=== PATIENT | male | born 1970 | race Caucasian/White ===

== ENCOUNTER 2018-02-05 21:03 | Emergency (ER) | payer BC ==
[~2018-02-05] VITALS: Ht 175.3 cm; Wt 83.9 kg
[2018-02-05] MEDS ORDERED: NKM (21:14)
[2018-02-05 21:36] VITALS: BP 122/87
--- NOTE | 2018-02-05 21:44 | Emergency Room Report ---
History of Present Illness General Chief Complaint: Laceration Source: Patient Present Illness HPI Patient is a 47-year-old male who presented after increased right ear pain. Patient reports having injury just prior to arrival. He reports having prior [place] injury which he had some residual ear deformity. The patient denied loss of consciousness. He reports having mild to moderate pain. Patient reports up to date tetanus. He denies nausea. Allergies: Coded Allergies: No Known Allergies (Unverified , 02/05/18) Patient History Past Medical History: see triage record Reviewed Nursing Documentation: PMH: Agreed; PSxH: Agreed Nursing Documentation-PMH Past Medical History: No Stated History Review of Systems All Other Systems: negative except mentioned in HPI Physical Exam Vital Signs Date Time Temp Pulse Resp B/P (MAP) Pulse Ox O2 Delivery O2 Flow Rate FiO2 02/05/18 21:09 98.1 75 16 126/87 95 Room Air 98.1 General Appearance: well appearing, no apparent distress, alert, GCS 15, non- toxic Head: normocephalic, atraumatic ENT: hearing grossly normal, normal voice, other - complex right ear laceration to medial cartilage Neck: full range of motion, supple Respiratory: no respiratory distress, speaking full sentences Musculoskeletal: no calf tenderness Neurologic: normal gait Psychiatric: mood/affect normal Skin: no rash, other - laceration to right ear near tragus Procedures Laceration/Wound Repair Laceration/Wound Repair : Consent: Verbal Wound Location: face Wound's Depth, Shape: irregular Wound Length (cm): 1 Irrigated w/ Saline (ccs): 30 Betadine Prep?: Yes Anesthesia: 0.5% Sensorcaine Volume Anesthetic (ccs): 4 Wound Debrided: minimal Wound Repaired With: sutures Suture Size/Type: 5:0 Number of Sutures: 6 Layer Closure?: Yes Deep Layer Suture Size/Type: 5:0, chromic Number Deep Layer Sutures: 3 Sterile Dressing Applied?: Yes Patient Tolerated: Well Complications: None Medical Decision Making Diagnostic Impression: Primary Impression: Laceration ER Course Patient presented for laceration. Differential diagnoses included foreign body , nerve injury, arterial injury among others. The patient's wound was irrigated and closed with sutures with sterile technique. The patient tolerated this well. The patient is advised that wound checked in 2-3 days. The patient is advised to have sutures removed in 14 days if they did not resolve spontaneously. The patient given prescription for Keflex. His tetanus is appear to be up-to-date. Patient shows no signs of head injury at this time. Last Vital Signs Date Time Temp Pulse Resp B/P (MAP) Pulse Ox O2 Delivery O2 Flow Rate FiO2 02/05/18 21:36 98.1 77 16 122/87 95 Room Air 98.1 Status: improved Disposition: HOME, SELF-CARE Condition: Stable Scripts Ibuprofen* (MOTRIN*) 600 Mg Tablet 600 MG ORAL Q8H PRN for For Pain, #20 TAB 0 Refills Prov: Davi Urias 02/05/18 Cephalexin* (KEFLEX*) 500 Mg Capsule 500 MG ORAL Q6H, #20 CAP 0 Refills Prov: Davi Urias 02/05/18 Bacitracin Zinc* (BACITRACIN ZINC*) 1 Each Packet 1 APPLIC TOPIC THREE TIMES A DAY for 7 Days, #30 PACKET Prov: Davi Urias 02/05/18 Davi Urias Feb 05, 2018 21:44
[2018-02-05] MEDS ORDERED: Bupivacaine 0.5% Inj 30 ml vial INJ ONE (21:45)
[2018-02-05] MEDS ORDERED: IBUPROFEN600 MG ORAL (22:56)
[2018-02-05] MEDS ORDERED: BACITRACIN ZIN1 EACH TOPIC (22:56)
[2018-02-05] MEDS ORDERED: KEFLEX500 MG ORAL (22:56)
[2018-02-05] MEDS ORDERED: Bacitracin Oint UD TOPIC ONE (23:00)
[2018-02-05 23:39] VITALS: BP 114/82
== END 2018-02-05 23:40 | disposition home or self-care (01) ==
LOC: EMR 21:27
DX: S01.311A Laceration without foreign body of right ear, initial encounter (principal); W21.11XA Struck by baseball bat, initial encounter; Y93.63 Activity, rugby; Y92.9 Unspecified place or not applicable
CPT/HCPCS: 12052; 99284; J3490